=== PATIENT | male | born 1930 | race Caucasian/White ===

== ENCOUNTER → 2016-07-29 | Outpatient (CLI) | payer MEDICARE, OTHER | END | disposition home or self-care (01) | LOC: GMAJ 10:28 | PROVIDERS: ATTEND Family Medicine | DX: Z12.5 Encounter for screening for malignant neoplasm of prostate (principal) ==

== ENCOUNTER 2017-05-07 10:01 | Emergency (ER) | payer MEDICARE, OTHER ==
[2017-05-07 10:11] VITALS: TEMP 97
[2017-05-07] MEDS ORDERED: AZITHROMYCIN 250 MG TAB PO ONE (10:27)
--- NOTE | 2017-05-07 10:42 | ED.PDOC ---
History of Present Illness - General Chief Complaint: General Stated Complaint: Cough and congestion Time Seen by Provider: 05/07/17 10:26 Source: patient Exam Limitations: no limitations - History of Present Illness Initial Comments: the patient is a 86-year-old male presenting to the emergency room secondary to cough for the last week. The patient went to his primary care doctor's office this morning however they were closing due to the weather. The patient left angry and came over here to the emergency room. He is not having any fevers. No chest pain. No new shortness of breath. Cough is mildly productive. No history of COPD. No immunocompromise. physical exam shows the patient in absolutely no distress. He is very mad. He does have a rattling cough. He does have coarse rhonchi bilaterally. Good air movement. No wheezes. No real rails that are localized. Timing/Duration: 1 week Severity: mild Improving Factors: nothing Worsening Factors: nothing Associated Symptoms: cough Allergies/Adverse Reactions: Allergies Naproxen [From Naprosyn] Allergy (Verified 05/07/17 10:12) Home Medications: Ambulatory Orders Aspirin [(None)] 325 mg PO QD 11/11/15 Atorvastatin Calcium [Lipitor] 10 mg PO BEDTIME 11/11/15 Furosemide [Lasix] 40 mg PO MOWEFR 11/11/15 Metoprolol Tartrate 50 mg PO BID 11/11/15 Review of Systems - Review of Systems Constitutional: States: malaise EENTM: States: nose congestion Respiratory: States: cough Cardiology: States: no symptoms reported Gastrointestinal/Abdominal: States: no symptoms reported Genitourinary: States: no symptoms reported Musculoskeletal: States: no symptoms reported Skin: States: no symptoms reported Neurological: States: no symptoms reported All other Systems: No Change from Baseline Past Medical History (General) - Patient Medical History Hx Seizures: No Hx Stroke: No Hx Dementia: No Hx Asthma: No Hx of COPD: No Hx Cardiac Disorders: Yes - Quadruple bypass 2012 Hx Congestive Heart Failure: No Hx Pacemaker: No Hx Hypertension: Yes Hx Thyroid Disease: No Hx Diabetes: No Hx Gastroesophageal Reflux: No Hx Renal Disease: No Hx Cancer: Yes - Melanoma on left upper arm removed Hx of HIV: No Hx Hepatitis C: No Hx MRSA: No Surgical History: coronary bypass surgery, other - Vaccination History Hx Tetanus, Diphtheria Vaccination: No Hx Influenza Vaccination: Yes - 2017 Hx Pneumococcal Vaccination: Yes - Social History Hx Tobacco Use: Yes Hx Chewing Tobacco Use: No Hx Alcohol Use: Yes Hx Substance Use: No Hx Substance Use Treatment: No Hx Depression: No Hx Physical Abuse: No Hx Emotional Abuse: No Hx Suspected Abuse: No - Activities of Daily Living Shelter/Assisted Living (if applicable):: [place] Family Medical History - Family History Mother Family History: Unknown Living Status: Physical Exam - Physical Exam General Appearance: Alert, Comfortable, No apparent distress Eye Exam: bilateral normal Ears, Nose, Throat: hearing grossly normal, nasal congestion Neck: full range of motion, supple Respiratory: no respiratory distress, no accessory muscle use, rhonchi - scattered Cardiovascular/Chest: normal peripheral pulses, no edema, other - regular rate Gastrointestinal/Abdominal: non tender, soft Rectal Exam: deferred Back Exam: no CVA tenderness, no vertebral tenderness Extremity: non-tender, normal inspection, no pedal edema, normal capillary refill Neurologic: prevention rn II-XII nml as tested, alert, normal mood/affect, oriented x 3 Skin Exam: normal color Comments: Vital Signs - 24 hr 05/07/17 05/07/17 10:06 10:43 Temperature 97.0 F L 97.0 F L Pulse Rate [ 59 L 84 Left Radial] Respiratory 24 24 Rate Blood Pressure 178/99 168/62 [Left Arm] O2 Sat by Pulse 96 96 Oximetry Progress - Progress Progress: 05/07/17 10:43 the patient is a 86-year-old male presenting to the emergency room with what appears to be a bronchitis of about a week's duration. He is in no distress. He is oxygenating well. He is afebrile. The patient was given a first dose of azithromycin here and Dr. Bran has already called in a prescription for further azithromycin to the pharmacy. The patient does have an appointment scheduled for tomorrow however it seems unlikely he will keep that appointment. He should follow up with a physician in the next 2-5 days for reevaluation of his pulmonary status. ER warnings were given for any worsening. [id number] cough medication such as Robitussin may prove somewhat beneficial. Departure - Departure Clinical Impression: Bronchitis Disposition: Discharge to Home or Self Care Condition: Fair Departure Forms: ED Discharge - Pt. Copy, Patient Portal Self Enrollment Instructions: DI for Acute Bronchitis Diet: regular diet Activity: increase activity as tolerated Referrals: Stew Bran MD [Primary Care Provider] - 1-2 Days Home Medications: Ambulatory Orders Aspirin [(None)] 325 mg PO QD 11/11/15 Atorvastatin Calcium [Lipitor] 10 mg PO BEDTIME 11/11/15 Furosemide [Lasix] 40 mg PO MOWEFR 11/11/15 Metoprolol Tartrate 50 mg PO BID 11/11/15 Additional Instructions: the patient is a 86-year-old male presenting to the emergency room with what appears to be a bronchitis of about a week's duration. He is in no distress. He is oxygenating well. He is afebrile. The patient was given a first dose of azithromycin here and Dr. Bran has already called in a prescription for further azithromycin to the pharmacy. The patient does have an appointment scheduled for tomorrow however it seems unlikely he will keep that appointment. He should follow up with a physician in the next 2-5 days for reevaluation of his pulmonary status. ER warnings were given for any worsening. [id number] cough medication such as Robitussin may prove somewhat beneficial.
[2017-05-07 10:49] VITALS: BP 168/62; O2SAT 97
== END 2017-05-07 10:46 | disposition home or self-care (01) ==
LOC: ER 10:01
DX: J40 Bronchitis, not specified as acute or chronic (principal); Z87.891 Personal history of nicotine dependence; Z95.1 Presence of aortocoronary bypass graft; I10 Essential (primary) hypertension; Z79.82 Long term (current) use of aspirin

== ENCOUNTER → 2017-06-17 | Outpatient (CLI) | payer MEDICARE, OTHER ==
--- NOTE | 2017-06-17 17:45 | US ---
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 TECHNIQUE: Carotid Doppler ultrasound FINDINGS: Right Submitted images show no significant stenosis is seen in the common carotid or external carotid arteries. Extensive arteriosclerotic plaque at the right carotid bifurcation. High-grade stenosis of the right ICA is present. Axial images show 37% area stenosis of the right carotid bulb related to calcified and noncalcified plaque. Above the level of the bulb there is 82% area stenosis of the proximal internal carotid artery. The following flow velocities were obtained: Common carotid artery peak systolic flow velocity measures 81 cm/s. Internal carotid artery peak systolic flow velocity measures up to 188 cm/s consistent with 60-79% stenosis. External carotid artery peak systolic flow velocity measures 93 cm/s. Flow in the right vertebral artery is antegrade. Left Submitted images show normal caliber of the left common carotid artery with calcified plaque at the left carotid bulb and proximal internal and external carotid arteries. Axial images show 50% area stenosis of the left carotid bulb with 73% area stenosis of the left ICA just above the bulb. The following flow velocities were obtained: Common carotid artery peak systolic flow velocity measures 87 cm/s. Internal carotid artery peak systolic flow velocity measures 120 cm/s suggesting 40-59% stenosis, not as high as expected from axial image suggesting 73% area stenosis. External carotid artery peak systolic flow velocity measures 114 cm/s. Flow in the left vertebral artery is antegrade. The internal carotid to common carotid peak systolic flow velocity ratio of 2.3 on the right is abnormally elevated. The left internal carotid to common carotid peak systolic flow velocity ratio of 1.4 is normal. IMPRESSION: Bilateral internal carotid arterial stenoses, right worse than left. See above. Electronically signed by: Jerome Aponte MD 06/17/2017 5:43 PM CDT
== END ==
LOC: US 10:30
PROVIDERS: ATTEND Family Medicine
DX: I65.23 Occlusion and stenosis of bilateral carotid arteries (principal)

== ENCOUNTER 2020-01-29 08:49 | Emergency (ER) | payer MEDICARE, OTHER ==
[2020-01-29] MEDS ORDERED: ONDANSETRON INJ 4 MG/2 ML VIAL IV ONE (09:15)
[2020-01-29] MEDS ORDERED: SODIUM CHLORIDE 0.9% (FLUSH) 10 ML SYG IV PRN (09:15)
--- NOTE | 2020-01-29 09:28 | ED.PDOC ---
History of Present Illness - General Chief Complaint: Chest Pain/PR Stated Complaint: chest discomfort,SOB Time Seen by Provider: 01/29/20 09:00 Source: patient, family Additional Information: The patient is an 89 year old with PMH significant for HTN, HLD, CAD s/p 4v CABG 10 years ago who presents with chest tightness and shortness of breath. He states that his symptoms started three days ago. He notes that every time he exerts himself he develops chest tightness and nausea. Symptoms improve with rest. This morning he got chest tightness while he was brushing his teeth and preparing for the day and the recurrent symptoms prompted him to call EMS. He complains currently of mild nausea but otherwise does not have any complaints. He is a former smoker. He does not think he has had any recent sick contacts. He does endorse mild non-productive cough over the past few weeks. No fever, chills, body aches, diarrhea or other symptoms. No other complaints at this time. PCP: Dr. Bran [employer] Supervisor: Dr. Del Valle Code Status: DNR - History of Present Illness Timing/Duration: 1 week, intermittent Severity/Quality: moderate Location: substernal, epigastric Chest Pain Radiation: no radiation Activities at Onset: activity Improving Factors: rest Worsening Factors: movement Nitro Today/Relief: 0.4 mg x 1, provided by EMS Aspirin Treatment Today: 325 mg x 1, provided by EMS Associated Symptoms: nausea/vomiting Allergies/Adverse Reactions: Allergies Naproxen [From Naprosyn] Allergy (Verified 05/07/17 10:12) Home Medications: Ambulatory Orders Aspirin [(None)] 325 mg PO QD 11/11/15 Atorvastatin Calcium [Lipitor] 10 mg PO BEDTIME 11/11/15 Furosemide [Lasix] 40 mg PO MOTUWETHFR 11/11/15 Metoprolol Tartrate 50 mg PO BID 11/11/15 Review of Systems - Review of Systems Constitutional: Denies: chills, fever, malaise EENTM: States: no symptoms reported Respiratory: States: cough, short of breath Cardiology: States: other - chest tightness Gastrointestinal/Abdominal: States: nausea Genitourinary: States: no symptoms reported Musculoskeletal: States: no symptoms reported Neurological: States: no symptoms reported Endocrine: States: no symptoms reported Hematologic/Lymphatic: States: no symptoms reported Past Medical History (General) - Patient Medical History Hx Seizures: No Hx Stroke: No Hx Dementia: No Hx Asthma: No Hx of COPD: No Hx Cardiac Disorders: Yes - Quadruple bypass 2012 Hx Congestive Heart Failure: No Hx Pacemaker: No Hx Hypertension: Yes Hx Thyroid Disease: No Hx Diabetes: No Hx Gastroesophageal Reflux: No Hx Renal Disease: No Hx Cancer: Yes - Melanoma on left upper arm removed Hx of HIV: No Hx Hepatitis C: No Hx MRSA: No Surgical History: coronary bypass surgery - Vaccination History Hx Tetanus, Diphtheria Vaccination: No Hx Influenza Vaccination: Yes Hx Pneumococcal Vaccination: Yes - Social History Hx Tobacco Use: Yes Hx Chewing Tobacco Use: No Hx Alcohol Use: Yes Hx Substance Use: No Hx Substance Use Treatment: No Hx Depression: No Hx Physical Abuse: No Hx Emotional Abuse: No Hx Suspected Abuse: No - Activities of Daily Living Long Term/Assisted Living (if applicable):: [place] Family Medical History - Family History Mother Family History: Unknown Living Status: Physical Exam - Physical Exam General Appearance: Alert, Comfortable, No apparent distress Eyes, Ears, Nose, Throat Exam: normal ENT inspection Neck: full range of motion, supple Respiratory: chest non-tender, lungs clear, normal breath sounds, no respiratory distress, no accessory muscle use, crackles - bilaterally at lung bases Cardiovascular/Chest: normal peripheral pulses, no edema, no gallop, no JVD, no murmur, bradycardia Gastrointestinal/Abdominal: normal bowel sounds, non tender, soft Rectal Exam: deferred Extremity: normal range of motion, non-tender, normal inspection, no pedal edema Neurologic: no motor/sensory deficits, alert, normal mood/affect, oriented x 3 Skin Exam: normal color, warm/dry Progress - Progress Progress: 01/29/20 10:12 Patient has elevated cardiac enzymes consistent with NSTEMI. Discussed with patient and , they would like cardiac intervention if required. Will initiate heparin drip and transfer process. 01/29/20 10:41 Discussed with ED at [facility], accepted for ED to ED transfer - Results/Orders Results/Orders: 01/29/20 09:15 Sodium Chloride 0.9% (Flush) [Saline Flush Syringe] 10 ml IV PRN PRN EKG Stat Pulse Ox Stat 01/29/20 09:27 RESPIRATORY PANEL 2 Stat 01/29/20 10:15 Heparin Premix [Heparin/D5w 25,000U/500ML] 25,000 units Premix Bag 1 bag IVS PRN Laboratory Results - last 24 hr 01/29/20 01/29/20 01/29/20 09:23 09:23 09:23 WBC 8.7 Cancelled RBC 4.27 L Cancelled Hgb 12.3 L Cancelled Hct 37.1 L Cancelled MCV 86.7 Cancelled MCH 28.7 Cancelled MCHC 33.1 Cancelled RDW 14.3 Cancelled Plt Count 212 Cancelled MPV 10.3 Cancelled Absolute Neuts (auto) 4.70 Cancelled Absolute Lymphs (auto) 3.00 Cancelled Absolute Monos (auto) 0.70 Cancelled Absolute Eos (auto) 0.30 Cancelled Absolute Basos (auto) 0.00 Cancelled Neutrophils % 54.2 Cancelled Lymphocytes % 34.4 Cancelled Monocytes % 8.0 Cancelled Eosinophils % 2.9 Cancelled Basophils % 0.5 Cancelled Differential Comment Cancelled RBC Morphology Cancelled PT 10.2 INR 1.03 PTT (SP) 23.7 D-Dimer, Quantitative 1520.0 H* Sodium 141 Potassium 4.0 Chloride 104 Carbon Dioxide 24 Anion Gap 17.0 BUN 37 H Creatinine 1.70 H BUN/Creatinine Ratio 21.8 H Random Glucose 101 Serum Osmolality 290.1 Calcium 9.1 Magnesium 2.2 Total Bilirubin Direct Bilirubin Indirect Bilirubin AST ALT Alkaline Phosphatase Creatine Kinase 646 H* CK-MB (CK-2) 53.1 H* CK-MB (CK-2) % 8.22 H Troponin I 18.39 H* B-Natriuretic Peptide 2180.0 H* Serum Total Protein Albumin Globulin Albumin/Globulin Ratio Lipase 01/29/20 09:23 WBC RBC Hgb Hct MCV MCH MCHC RDW Plt Count MPV Absolute Neuts (auto) Absolute Lymphs (auto) Absolute Monos (auto) Absolute Eos (auto) Absolute Basos (auto) Neutrophils % Lymphocytes % Monocytes % Eosinophils % Basophils % Differential Comment RBC Morphology PT INR PTT (SP) D-Dimer, Quantitative Sodium Cancelled Potassium Cancelled Chloride Cancelled Carbon Dioxide Cancelled Anion Gap Cancelled BUN Cancelled Creatinine Cancelled BUN/Creatinine Ratio Cancelled Random Glucose Cancelled Serum Osmolality Cancelled Calcium Cancelled Magnesium Total Bilirubin 1.1 H Direct Bilirubin 0.3 H Indirect Bilirubin 0.8 AST 108 H ALT 48 Alkaline Phosphatase 76 Creatine Kinase CK-MB (CK-2) CK-MB (CK-2) % Troponin I B-Natriuretic Peptide Serum Total Protein 7.3 Albumin 3.7 Globulin Cancelled Albumin/Globulin Ratio Cancelled Lipase 35 - EKG/XRAY/CT Comments: 0853 sinus bradycardia rate 55 inferior Q waves, lateral st segment depress XRAY: chest Xray Comments: Mild vascular congestion Departure - Departure Clinical Impression: NSTEMI (non-ST elevated myocardial infarction) Time of Disposition: 10:42 Disposition: Transfer to Hospital Condition: Fair Departure Forms: ED Discharge - Pt. 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 Chavez Accepting Facility: [place]
--- NOTE | 2020-01-29 09:39 | RAD ---
EXAM: XR Chest, 1 View CLINICAL HISTORY: shortness of breath TECHNIQUE: Frontal view of the chest. COMPARISON: 12/26/2015 FINDINGS: Lungs: Stable mild scarring. Pleural space: No pneumothorax or pleural effusion. Heart: Stable cardiac enlargement. Mediastinum: No abnormality noted. Bones/joints: No osseous destruction or sclerosis noted. Vasculature: There is mild vascular congestion. IMPRESSION: There is mild vascular congestion. Electronically signed by: Clarisse Hernandez MD 01/29/2020 9:37 AM [employer]CH[employer]
[2020-01-29] MEDS ORDERED: HEPARIN SODIUM (PORCINE) 5,000 U/ML VIAL IV ONE (10:06)
[2020-01-29] MEDS ORDERED: HEPARIN PREMIX 25,000 UNITS in PREMIX BAG 1 BAG IVS SCH (10:15)
[2020-01-29 10:59] VITALS: BP 132/66; TEMP 97.8; O2SAT 95
== END 2020-01-29 10:55 | disposition short-term general hospital (02) ==
LOC: ER 08:49
DX: I21.4 Non-ST elevation (NSTEMI) myocardial infarction (principal); R06.02 Shortness of breath; R00.1 Bradycardia, unspecified; I25.10 Atherosclerotic heart disease of native coronary artery without angina pectoris; E78.00 Pure hypercholesterolemia, unspecified; I10 Essential (primary) hypertension; Z95.1 Presence of aortocoronary bypass graft; Z87.891 Personal history of nicotine dependence; Z66 Do not resuscitate; Z79.82 Long term (current) use of aspirin; Z79.899 Other long term (current) drug therapy; Z88.6 Allergy status to analgesic agent; Z85.820 Personal history of malignant melanoma of skin; Z20.828 Contact with and (suspected) exposure to other viral communicable diseases
CPT/HCPCS: 36415; 71045; 80048; 80076; 82550; 82553; 83690; 83880; 84484; 85025; 85379; 85610; 85730; 87486; 87581; 87633; 87635; 93005; J1644; J2405